=== PATIENT | male | born 1990 | race Hispanic/Latino ===

== ENCOUNTER 2018-03-16 08:08 | Outpatient (CLI) | payer OTHER ==
--- NOTE | 2018-03-16 09:01 | Ultrasound Report ---
Sonogram of palpable area adjacent to the umbilicus: History: There is soft tissue mass measuring 1.07 cm in diameter noted in palpable area adjacent to the umbilicus. There is no bowel identified within the soft tissue. Impression: Soft tissue mass. Recommend CT scan for further evaluation.
== END 2018-03-16 08:09 | disposition home or self-care (01) ==
LOC: US 08:08
DX: K42.9 Umbilical hernia without obstruction or gangrene (principal)
CPT/HCPCS: 76705